=== PATIENT | female | born 1955 | race Caucasian/White ===

== ENCOUNTER 2018-12-31 21:47 | Emergency (ER) | payer BC, MEDICARE ==
[2018-12-31] MEDS ORDERED: Ibuprofen 200 MG TAB ONE (22:31)
--- NOTE | 2019-01-01 07:08 | RAD ---
CERVICAL SPINE 3 VIEWS: Date: 12/31/18 No fracture was seen. There is no dislocation or soft tissue swelling. The C1 to dens distance is nor mal. There are diffuse severe degenerative changes throughout the spine with disc space narrowing par ticularly at C5-C6 and C6-C7. There are abundant signs of facet arthritis in the mid cervical level. IMPRESSION: Severe degenerative changes, but no acute bony findings. POS: HOME
--- NOTE | 2019-01-01 07:13 | RAD ---
CHEST 2 VIEWS: Date: 12/31/18 No prior films available for comparison. The heart is normal in size. There is dense calcification in the aortic arch. The lungs are hyperexpa nded, but clear. There is some general interstitial prominence throughout the may be fibrosis. No acu te infiltrate, effusion, or pneumothorax seen. The mediastinum shows no widening or shift. No fractur es detected. Degenerative changes are present in the mid to lower thoracic spine. IMPRESSION: Chronic changes, but no acute findings. POS: HOME
== END 2018-12-31 22:30 | disposition home or self-care (01) ==
LOC: BURERS 21:47
DX: S16.1XXA Strain of muscle, fascia and tendon at neck level, initial encounter (principal); S29.012A Strain of muscle and tendon of back wall of thorax, initial encounter; I10 Essential (primary) hypertension; Z79.899 Other long term (current) drug therapy; V49.9XXA Car occupant (driver) (passenger) injured in unspecified traffic accident, initial encounter
CPT/HCPCS: 71046; 72040